=== PATIENT | male | born 1945 | race African-American/Black ===

== ENCOUNTER 2018-08-22 10:07 | Outpatient (CLI) | payer OTHER ==
[2018-08-26] MEDS ORDERED: VASOTEC10 MG PO (10:43)
[2018-08-26] MEDS ORDERED: CHILDREN'S ASPI81 MG PO (10:43)
[2018-08-26] MEDS ORDERED: GLIPIZIDE XL10 MG PO (10:44)
[2018-08-26] MEDS ORDERED: NEURONTIN800 MG PO (10:44)
== END 2018-08-22 15:00 | disposition home or self-care (01) ==
LOC: LAB 10:07
DX: M54.6 Pain in thoracic spine (principal); E11.00 Type 2 diabetes mellitus with hyperosmolarity without nonketotic hyperglycemic-hyperosmolar coma (NKHHC); M51.26 Other intervertebral disc displacement, lumbar region; M54.16 Radiculopathy, lumbar region

== ENCOUNTER 2018-08-29 10:29 | Day surgery (SDC) | payer OTHER ==
[~2018-08-29 10:29] MED LIST: CHILDREN'S ASPI81 MG PO; GLIPIZIDE XL10 MG PO; NEURONTIN800 MG PO; VASOTEC10 MG PO
== END 2018-08-29 16:35 | disposition home or self-care (01) ==
LOC: CIR.AMB 10:29
DX: M51.16 Intervertebral disc disorders with radiculopathy, lumbar region (principal)